=== PATIENT | female | born 1995 | race Caucasian/White ===

== ENCOUNTER 2016-05-01 18:00 | Emergency (ER) | payer OTHER ==
[~2016-05-01] VITALS: Ht 162.6 cm; Wt 53.0 kg
[~2016-05-01 18:00] MED LIST: CALC-176 PO; FER325 PO; PRENAT PO
[2016-05-01 18:45] VITALS: Ht 162.6 cm; Wt 53.0 kg
--- NOTE | 2016-05-01 22:11 | ERD ---
ER Documentation Chief Complaint Date/Time DATE: 05/01/16 TIME: 22:10 Chief Complaint 8 weeks , vag bleeding x 2 days HPI 20-year-old female presents here in emergency department for complaints of vaginal bleeding for 2 days. Patient describes the bleeding as spotting, 4/10 scale, now better or worse with anything. Patient is 2 para 1 0. Patient was told 2015. Patient is approximately 8 weeks . Patient denies hematuria or dysuria. Patient denies any flank pain. Patient denies any abdominal pain. Patient denies any nausea or vomiting. Patient did not take any medications to help with symptoms. ROS All systems reviewed and are negative except as per history of present illness. Medications Home Meds Reported Medications Calcium Cmb 2-Mag Cmb 12-Vit D3 (Calcium 500) 1 Each Tablet, 1 TAB PO DAILY, TAB 02/25/14 Ferrous Sulfate* (Ferrous Sulfate*) 325 Mg Tabec, 325 MG PO DAILY, TAB 02/25/14 Multivit/Min/Fol Ac/Iron/Pren* ( S*) 1 Tab Tab, 1 TAB PO DAILY, TAB 12/18/13 Allergies Allergies: Coded Allergies: No Known Allergy (Unverified , 05/25/14) PMhx/Soc Medical and Surgical Hx: pt denies Medical Hx, pt denies Surgical Hx History of Surgery: No Anesthesia Reaction: No Hx Neurological Disorder: No Hx Respiratory Disorders: No Hx Cardiac Disorders: No Hx Psychiatric Problems: No Hx Miscellaneous Medical Probl: No Hx Alcohol Use: No Hx Substance Use: No Hx Tobacco Use: No Smoking Status: Never smoker FmHx Family History: No coronary disease, No diabetes, No other Physical Exam Vitals Vital Signs Date Time Temp Pulse Resp B/P Pulse Ox O2 Delivery O2 Flow Rate FiO2 05/01/16 18:45 99.4 89 20 126/59 100 Physical Exam GENERAL: The patient is well developed and appropriate for usual state of health, in no apparent distress. CHEST: Clear to auscultation bilaterally. There are no rales, wheezes or rhonchi. HEART: Regular rate and rhythm. No murmurs, clicks, rubs or gallops. No S3 or S4. ABDOMEN: Soft, nontender and nondistended. Good bowel sounds. No rebound or guarding. No gross peritonitis. No gross organomegaly or masses. No Fung sign or McBurney point tenderness. BACK: No midline or flank tenderness. EXTREMITIES: Equal pulses bilaterally. There is no peripheral clubbing, cyanosis or edema. No focal swelling or erythema. Full range of motion. Grossly neurovascularly intact. NEURO: Alert and oriented. Cranial nerves 2-12 intact. Motor strength in all 4 extremities with 5/5 strength. Sensation grossly intact. Normal speech and gait. SKIN: There is no apparent rash or petechia. The skin is warm and dry. HEMATOLOGIC AND LYMPHATIC: There is no evidence of excessive bruising or lymphedema. No gross cervical, axillary, or inguinal lymphadenopathy. VAGINAL: Small amount of blood in the vaginal vault, cervical os is closed. No cervical motion tenderness or adnexal tenderness noted. Result Diagram: 05/01/162226 Results 24 hrs Laboratory Tests Test 05/01/16 22:27 05/01/16 22:55 Basophils # 0.010^3/ul Basophils % 0.6% Beta HCG, Quantitative 2922.3mIU/ml Blood Morphology Comment Eosinophils # 0.110^3/ul Eosinophils % 1.5% Hematocrit 39.1% Hemoglobin 13.3g/dl Lymphocytes # 2.110^3/ul Lymphocytes % 34.3% Mean Corpuscular Hemoglobin 30.5pg Mean Corpuscular Hemoglobin Concent 34.0g/dl Mean Corpuscular Volume 89.6fl Mean Platelet Volume 8.5fl Monocytes # 0.810^3/ul Monocytes % 13.3% Neutrophils # 3.110^3/ul Neutrophils % 50.3% Nucleated Red Blood Cells # 0.010^3/ul Nucleated Red Blood Cells % 0.0/100WBC Platelet Count 73333^3/UL Red Blood Count 4.3610^6/ul Red Cell Distribution Width 15.3% White Blood Count 6.210^3/ul Urine Bacteria MODERATE Urine Bilirubin NEGATIVE Urine Clarity CLEAR Urine Color LT. YELLOW Urine Glucose NEGATIVE% Urine Hemoglobin 2+ Urine Ketones NEGATIVE Urine Leukocyte Esterase NEGATIVE Urine Microscopic RBC 0-2/HPF Urine Microscopic WBC 2-5/HPF Urine Nitrite NEGATIVE Urine Specific [place] 1.020 Urine Squamous Epithelial Cells MANY Urine Total Protein NEGATIVE Urine Urobilinogen 1.0 E.U./dL Urine pH 6.5 PROCEDURE: ULTRASOUND OBSTETRICAL CLINICAL INDICATION: 20-year-old female with vaginal bleeding. TECHNIQUE: Multiple sonographic images of the pelvis were obtained. The images were reviewed on a PACS workstation. COMPARISON: None. FINDINGS: There is a single intrauterine gestation. There is a yolk sac present. The mean sac diameter is 0.34 cm. This yields an estimated gestational age of 4 weeks and 6 days. The estimated date of delivery is January 02, 2017. There is no evidence for a pole. There is no evidence for free fluid. The right ovary has a normal echotexture and measures 3.5 x 2.1 x 3.4 cm. The left ovary has a normal echotexture and measures 2.5 x 2.2 x 2.5 cm. There is normal flow to the ovaries bilaterally. No adnexal masses are noted. IMPRESSION: Single early intrauterine gestation of approximately 4 weeks 6 days without evidence for a pole. Clinical correlation and follow-up ultrasound is suggested. .Dell Colindres MD, MD Date Time Electronically viewed and signed by .Dell Colindres MD, MD on 05/01/2016 23:50 .M/ CC: [facility] Procedures/MDM Medical Decision Making: Patients vaginal bleeding is most likely consistent of possible threatened . Patient does not show any evidence of hypovolemic shock. Patients hemoglobin and hematocrit is stable. There is low suspicion for ectopic . JAKE results show in all 4 week BetaHCG Quantitative is appropriate for The patient is Rh+, does not need RhoGAM this time. There is no signs of symptoms of dehydration. There is low suspicion for sepsis. Patient appears well and is hemodynamically stable. Disposition: Home. Condition: Stable Instructions: Patient is advised to do bed rest, avoid heavy lifting, and avoid having sex until cleared by OB doctor. Patient is advised to follow up with OB doctor or here at the ER in 48 hours for reevaluation of symptoms, repeat beta HCG quantitative and ultrasound. Patient is advised that is symptoms are worst, severe bleeding, dizziness, severe abdominal pain, fever, worst signs and symptoms to return to the emergency department immediately. Departure Diagnosis: Primary Impression: Threatened miscarriage Additional Impression: Intrauterine Condition: Stable Patient Instructions: Possible Miscarriage (Threatened ) Additional Instructions: Patient is advised to do bed rest, avoid heavy lifting, and avoid having sex until cleared by OB doctor. Patient is advised to follow up with OB doctor or here at the ER in 48 hours for reevaluation of symptoms, repeat beta HCG quantitative and ultrasound. Patient is advised that is symptoms are worst, severe bleeding, dizziness, severe abdominal pain, fever, worst signs and symptoms to return to the emergency department immediately. [facility] NP May 01, 2016 22:11
[2016-05-01 22:51] LABS: BASOPHILS % 0.6 % (0.0-2.0); EOSINOPHILS # 0.1 10^3/ul (0.0-0.5); EOSINOPHILS % 1.5 % (0.0-7.0); HEMATOCRIT 39.1 % (37.0-47.0); HEMOGLOBIN 13.3 g/dl (12.0-16.0); LYMPHOCYTES # 2.1 10^3/ul (0.8-2.9); LYMPHOCYTES % 34.3 % (15.0-51.0); MEAN CORPUSCULAR HEMOGLOBIN 30.5 pg (29.0-33.0); MEAN CORPUSCULAR VOLUME 89.6 fl (82.0-101.0); MEAN PLATELET VOLUME 8.5 fl (7.4-10.4); MONOCYTE # 0.8 10^3/ul (0.3-0.9); MONOCYTES % 13.3 % (0.0-11.0); NEUTROPHIL # 3.1 10^3/ul (1.6-7.5); NEUTROPHILS % 50.3 % (39.0-77.0); PLATELET COUNT 190 10^3/UL (140-440); RED BLOOD COUNT 4.36 10^6/ul (4.20-5.40); RED CELL DISTRIBUTION WIDTH 15.3 % (11.5-14.5); UNCORRECTED WBC 6.2 10^3/ul (4.8-10.8); WHITE BLOOD COUNT 6.2 10^3/ul (4.8-10.8)
[2016-05-01 22:52] LABS: CONDITION 1; LH ANALYZER COMMENTS 1
[2016-05-01 23:22] LABS: ADD UMIC YES; URINE BILIRUBIN (Dip) NEGATIVE (NEGATIVE); URINE BLOOD (Dip) 2+ (NEGATIVE); URINE COLOR LT. YELLOW (YELLOW); URINE GLUCOSE (Dip) NEGATIVE (NEGATIVE); URINE KETONES (Dip) NEGATIVE (NEGATIVE); URINE LEUKOCYTE ESTERASE (Dip) NEGATIVE (NEGATIVE); URINE NITRITE (Dip) NEGATIVE (NEGATIVE); URINE TOTAL PROTEIN (Dip) NEGATIVE (NEGATIVE); URINE UROBILINOGEN (Dip) 1.0 E.U./dL (0.1-1.0)
--- NOTE | 2016-05-01 23:51 | RADRPT ---
PROCEDURE: ULTRASOUND OBSTETRICAL CLINICAL INDICATION: 20-year-old female with vaginal bleeding. TECHNIQUE: Multiple sonographic images of the pelvis were obtained. The images were reviewed on a PACS workstation. COMPARISON: None. FINDINGS: There is a single intrauterine gestation. There is a yolk sac present. The mean sac diameter is 0. 34 cm. This yields an estimated gestational age of 4 weeks and 6 days. The estimated date of deliver y is January 02, 2017. There is no evidence for a pole. There is no evidence for free fluid. The right ovary has a normal echotexture and measures 3.5 x 2.1 x 3.4 cm. The left ovary has a nor mal echotexture and measures 2.5 x 2.2 x 2.5 cm. There is normal flow to the ovaries bilaterally. N o adnexal masses are noted. IMPRESSION: Single early intrauterine gestation of approximately 4 weeks 6 days without evidence for a mikki e. Clinical correlation and follow-up ultrasound is suggested. .Dell Colindres MD, MD Date Time Electronically viewed and signed by .Dell Colindres MD, on 05/01/2016 23:50 .M/
[2016-05-02 00:06] LABS: BACTERIA,URINE MODERATE; SQUAMOUS EPITHELIAL CELL,UR MANY; URINE RBCS 0-2 /HPF (0)
[2016-05-02 00:56] VITALS: BP 118/65; PULSE 91; RESP 16
== END 2016-05-02 00:58 | disposition home or self-care (01) ==
LOC: FTE 18:00
DX: O20.0 Threatened abortion (principal); Z3A.01 Less than 8 weeks gestation of pregnancy
CPT/HCPCS: 76801; 76817; 81001; 84702; 85025; 86900; 86901; Z7502; 81003

== ENCOUNTER 2016-11-09 22:55 | Outpatient (CLI) | payer MEDICAID, OTHER ==
[~2016-11-09] VITALS: Ht 162.6 cm; Wt 66.7 kg
[2016-11-09 23:17] VITALS: BP 105/55; PULSE 80; RESP 18; Ht 162.6 cm; Wt 66.7 kg
--- NOTE | 2016-11-10 00:59 | PN ---
Triage Information Date/Time November 10, 2016 Reason for visit: Abd/pelvic pain Weeks of Gestation 31w 1d /Para 2/1 Diabetes: none Hypertention: none Additional information Pt reports that she feels fine lying down but when she gets up to walk her pelvis hurts a lot. No bleeding or leaking. +FM. PMHx: none. PSHx: none. NKDA. Objective Vital Signs Date Time Temp Pulse Resp B/P Pulse Ox O2 Delivery O2 Flow Rate FiO2 11/09/16 23:17 97.6 80 18 105/55 Room Air Heart Rate: 120's Heart Rate Comments Accels to 140 bpm. No decels. Contractions: >10 Minutes Apart Disposition: Discharge Assessment/Plan A: IUP at 31w 1d. False labor. Ligament pain. P: U/A. P.O hydration. BPP, Cx length. Ma Described to pt why the ligaments hurt during . July d/c pt home if all OK. CHRISTIAN GUAMAN MD Nov 10, 2016 00:59
--- NOTE | 2016-11-10 01:45 | RADRPT ---
PROCEDURE: US OB biophysical profile. CLINICAL INDICATION: decreased movements TECHNIQUE: Multiple sonographic images of the pelvis were obtained. The images were reviewed on a PACS workstation. COMPARISON: No pertinent prior examinations were submitted for comparison. FINDINGS: There is a single viable intrauterine gestation. Cardiac activity is present with 128 beats per min [place]. There is a vertex presentation. The placenta is posterior, grade 2 in appearance. There is a normal amount of amniotic fluid with an [place] = 16.1 cm. The cervix is closed, measuring 3.2 cm in length. Biophysical profile: movement 2/2 tone 2/2. breathing 2/2 [place] 2/2 Total 10/29 IMPRESSION: Normal biophysical profile. RPTAT: HIKT . .Natan Bess MD, Date Time Electronically viewed and signed by .Natan Bess MD, on 11/10/2016 01:44 .T/
[2016-11-10 02:40] LABS: ADD UMIC YES; UR ASCORBIC ACID 20 mg/dL (NEGATIVE); UR BILIRUBIN (Dip) NEGATIVE (NEGATIVE); UR BLOOD (Dip) NEGATIVE (NEGATIVE); UR CLARITY SLIGHTLY CLOUDY (CLEAR); UR COLOR YELLOW (YELLOW); UR GLUCOSE (Dip) NEGATIVE (NEGATIVE); UR KETONES (Dip) NEGATIVE (NEGATIVE); UR LEUKOCYTE ESTERASE (Dip) 1+ Leu/ul (NEGATIVE); UR NITRITE (Dip) NEGATIVE (NEGATIVE); UR RBC 1 /HPF (0-5); UR SPECIFIC GRAVITY (Dip) 1.024 (1.003-1.030); UR SQUAMOUS EPITHELIAL CELL FEW /HPF (FEW); UR TOTAL PROTEIN (Dip) NEGATIVE (NEGATIVE); UR UROBILINOGEN (Dip) NEGATIVE (NEGATIVE)
== END 2016-11-10 02:45 | disposition home or self-care (01) ==
LOC: OBT 22:55 → L-D 22:57 → OBT 11-10 02:45
PROVIDERS: ATTEND Obstetrics & Gynecology
DX: O26.893 Other specified pregnancy related conditions, third trimester (principal); Z3A.31 31 weeks gestation of pregnancy; R10.2 Pelvic and perineal pain; O47.03 False labor before 37 completed weeks of gestation, third trimester
CPT/HCPCS: 76817; 76818; 81001

== ENCOUNTER 2016-12-16 21:22 | Outpatient (CLI) | payer OTHER ==
[~2016-12-16] VITALS: Ht 162.6 cm; Wt 69.7 kg
[2016-12-16 22:38] VITALS: BP 115/68; PULSE 80; RESP 18; Ht 162.6 cm; Wt 69.7 kg
--- NOTE | 2016-12-17 00:07 | RADRPT ---
PROCEDURE: ULTRASOUND BIOPHYSICAL PROFILE CLINICAL INDICATION: 21-year-old female for viability. TECHNIQUE: Multiple sonographic images were obtained in order to perform a biophysical profile The images were reviewed on a PACS workstation. COMPARISON: Ultrasound biophysical profile November 10, 2016. FINDINGS: There is a single viable intrauterine gestation. There is a vertex presentation. Cardiac activity i s present at 125 beats per minute. The placenta is fundal. The results of the biophysical profile a re as follows: breathing movement = 2/2 Gross body movement = 2/2 tone = 2/2 Qualitative amniotic fluid volume = 2/2 Amniotic fluid index equals 16.9 cm. This yields a biophysical profile score of 8/8. IMPRESSION: Biophysical profile score is 8/8. .Dell Colindres MD, MD Date Time Electronically viewed and signed by .Dell Colindres MD, on 12/17/2016 00:07 .M/
--- NOTE | 2016-12-17 00:10 | RADRPT ---
PROCEDURE: ULTRASOUND OBSTETRICAL CLINICAL INDICATION: 21-year-old female for size and date determination. TECHNIQUE: Multiple sonographic images of the pelvis were obtained. The images were reviewed on a PACS workstation. COMPARISON: Ultrasound biophysical profile obtained concurrently. FINDINGS: The cervix is not well visualized. There is a single viable intrauterine gestation. Cardiac activit y is present with 124 beats per minute. There is a vertex presentation. Measurements were made in or jolie to determine age. The results are as follows: BPD = 9.45 cm, HC = 33.30 cm, AC = 34.08 cm, FL = 7.40 cm. This yields and estimated gestational ag e of approximately 38 weeks 1 day. The estimated date of delivery is December 29, 2016. The EFW = 33 74 +/- 506 g (7 lb 7 oz). The GP is 45%. The placenta is fundal. There is no evidence for an abruption or placenta previa. IMPRESSION: 1. Single viable intrauterine gestation of approximately 38 weeks 1 day with vertex presentation. 2. The estimated weight is 3374 +/- 506 g (7 lb 7 oz). The GP is 45%. .Dell Colindres MD, Date Time Electronically viewed and signed by .Dell Colindres MD, on 12/17/2016 00:10 .M/
--- NOTE | 2016-12-17 01:57 | TRIAGE ---
OB Triage Datetime Report Generated by CPN: 12/17/2016 01:56 Datetime: 12/17/2016 01:49 Stage of : OB Triage Datetime: 12/17/2016 01:46 Labor Evaluation Frequency: 2-4 Monitor Mode: External Duration (sec)2399: 40-80 Pattern: Normal: <= 5 Contractions in 10 Minutes Heart Rate FHR Baseline Rate: 120 Monitor Mode: External US FHR Baseline Changes: No Baseline Change Variability: Moderate 6-25 bpm Datetime: 12/17/2016 01:24 Vaginal Exam Dilatation (cms): 2.0 Effacement (%): 60 Station: -1 Exam By: justin rn Vaginal Bleeding: None Cervix, Consistency: Moderate Cervix, Position: Posterior Presentation 'A': Cephalic Datetime: 12/17/2016 00:30 Stage of : OB Triage Datetime: 12/16/2016 22:30 Labor Evaluation Frequency: occ Monitor Mode: External Pattern: Normal: <= 5 Contractions in 10 Minutes Heart Rate FHR Baseline Rate: 115 FHR Baseline Changes: No Baseline Change Variability: Moderate 6-25 bpm Accelerations: 15X15 Datetime: 12/16/2016 22:17 Pain Presence: None/Denies Pain Assessment Comments: patient denies UC's since she has come to the hospital, states that she only feels pressure when she walks Datetime: 12/16/2016 22:02 Time of Arrival: 12/16/2016 21:20 EGA: 38.6 Arrived By: Wheelchair Arrived From: Home Chief Complaint: CONTRACTIONS Movement: Present Contractions: Regular Time Contractions Began: 12/16/2016 19:00 Contractions: Q5MIN PER PT REPORT Rupture of Membranes: Denies Vaginal Bleeding: None Vaginal Discharge: Present Recent Sexual Intercouse: Denies Abdominal Trauma: Not Applicable Patient Complaints: Contractions Time Provider Notified: 12/16/2016 22:14 Provider Notified: [place] Initial Plan: CEFM, SVE, BPP, EFW, AMBULATE Datetime: 12/16/2016 21:51 Vaginal Exam Dilatation (cms): 2.5 Effacement (%): 50 Station: -1 Exam By: bechristyVendavoista Vaginal Bleeding: None Cervix, Consistency: Moderate Cervix, Position: Posterior Presentation 'A': Cephalic Datetime: 12/16/2016 21:48 Stage of : OB Triage Pain Assessment Pain Scale: 9 Pain Presence: Intermittent Pain Type: Cramping; Contraction Pain Location: Abdomen Datetime: 12/16/2016 21:35 Assessment Type: Triage Maternal Assessment Level of Consciousness: Fully Conscious DTR's/Clonus: DTRs 2+; No Clonus Headache: Denies Blurred Vision: No Respiratory Effort: Unlabored; Regular Rhythm; Equal Expansion Breath Sounds, Left: Clear and Equal Breath Sounds, Right: Clear and Equal Nausea/Vomiting: Denies RUQ Epigastric Pain: Denies Lower Extremities Edema: None Degree: None Upper Extremities Edema: None Degree: None Facial Edema: None Fall Risk Assessment History of Falling: (0) No Secondary Diagnosis: (0) No Ambulatory Aid: (0) Bedrest/Nurse Assist IV Therapy: (0) No Gait: (0) Normal/Bedrest/Immobile Mental Status: (0) Oriented to Own Ability Fall Score: 0 Fall Risk Score Definition: No Risk: No action required Datetime: 11/10/2016 02:10 Labor Evaluation Frequency: NONE Monitor Mode: External Pattern: Normal: <= 5 Contractions in 10 Minutes Resting Tone [place]: Relaxed Heart Rate FHR Baseline Rate: 115 Monitor Mode: External US FHR Baseline Changes: No Baseline Change Variability: Moderate 6-25 bpm Accelerations: 15X15 Decelerations: None Category: Category I Datetime: 11/10/2016 01:00 Labor Evaluation Frequency: X2 Monitor Mode: External Duration (sec)2399: 70-80 Quality: Mild Pattern: Normal: <= 5 Contractions in 10 Minutes Resting Tone [place]: Relaxed Heart Rate FHR Baseline Rate: 120 Monitor Mode: External US FHR Baseline Changes: No Baseline Change Variability: Moderate 6-25 bpm Accelerations: 15X15 Decelerations: Variable Category: Category II Datetime: 11/10/2016 00:38 Comments: LOSS OF CONTACT Datetime: 11/10/2016 00:00 Labor Evaluation Frequency: X2 Monitor Mode: External Duration (sec)2399: 50-70 Quality: Mild Pattern: Normal: <= 5 Contractions in 10 Minutes Resting Tone [place]: Relaxed Heart Rate FHR Baseline Rate: 120 Monitor Mode: External US FHR Baseline Changes: No Baseline Change Variability: Moderate 6-25 bpm Accelerations: 15X15 Decelerations: None Category: Category I Datetime: 11/09/2016 23:15 Time of Arrival: 11/09/2016 22:50 EGA: 33.4 Arrived By: Wheelchair Arrived From: Home Chief Complaint: lower abdominal pressure Movement: Present Contractions: Denies/Absent Rupture of Membranes: Ruptured Vaginal Bleeding: None Vaginal Discharge: Denies Recent Sexual Intercouse: Denies Abdominal Trauma: Not Applicable Patient Complaints: None Time Provider Notified: 11/10/2016 00:50 Provider Notified: (Annotations: Data stored by [facility] on behalf of user) Initial Plan: efm, PO HYDRATION, U_S FOR CERVICAL LENGTH AND BPP, UA Datetime: 11/09/2016 23:13 Assessment Type: Triage Maternal Assessment Level of Consciousness: Fully Conscious DTR's/Clonus: DTRs 2+; No Clonus Headache: Denies Blurred Vision: No Respiratory Effort: Unlabored; Regular Rhythm; Equal Expansion Breath Sounds, Left: Clear and Equal Breath Sounds, Right: Clear and Equal Nausea/Vomiting: Denies RUQ Epigastric Pain: Denies Facial Edema: None Fall Risk Assessment History of Falling: (0) No Secondary Diagnosis: (0) No Ambulatory Aid: (0) Bedrest/Nurse Assist IV Therapy: (0) No Gait: (0) Normal/Bedrest/Immobile Mental Status: (0) Oriented to Own Ability Fall Score: 0 Fall Risk Score Definition: No Risk: No action required Comment: pt c_o lower abdominal pressure. denies leaking or bleeding. placed on efm Datetime: 11/09/2016 23:10 Membrane Status: Intact Datetime: 11/09/2016 22:57 Labor Evaluation Frequency: none Pattern: Normal: <= 5 Contractions in 10 Minutes Resting Tone [place]: Relaxed Heart Rate FHR Baseline Rate: 115 Monitor Mode: External US FHR Baseline Changes: No Baseline Change Variability: Moderate 6-25 bpm Accelerations: 15X15 Decelerations: None Category: Category I
== END 2016-12-17 02:00 | disposition home or self-care (01) ==
LOC: OBT 21:22 → L-D 21:23 → OBT 12-17 02:00
PROVIDERS: ATTEND Obstetrics & Gynecology
DX: O26.893 Other specified pregnancy related conditions, third trimester (principal); R10.9 Unspecified abdominal pain; Z3A.33 33 weeks gestation of pregnancy
CPT/HCPCS: 76815; 76818; Z7500; G0463

== ENCOUNTER 2016-12-21 16:07 | Inpatient (IN) | payer OTHER ==
[~2016-12-21] VITALS: Ht 162.6 cm; Wt 70.0 kg
[2016-12-21] MEDS ORDERED: LACTATED RINGER'S 1,000 ML IV SCH (16:46)
[2016-12-21] MEDS ORDERED: AMPICILLIN 2 GM/NS (PMX) 100 ML ONE (16:52)
[2016-12-21 16:55] VITALS: Ht 162.6 cm; Wt 70.0 kg
[2016-12-21] MEDS ORDERED: OXYTOCIN 30 UNITS/LR 500 ML IV SCH (17:00)
[2016-12-21] MEDS ORDERED: OXYTOCIN 30 UNITS/LR 500 ML IV PRN (17:00)
[2016-12-21] MEDS ORDERED: BUTORPHANOL 2 MG INJ IV PRN (17:00)
[2016-12-21] MEDS ORDERED: OXYCODONE/ACETAMINOPHEN (5/325) TAB PO PRN (17:00)
[2016-12-21] MEDS ORDERED: LIDOCAINE 1% (MPF) 30 ML INJ INJ PRN (17:00)
[2016-12-21] MEDS ORDERED: MISOPROSTOL 200 MCG TAB PR PRN (17:00)
[2016-12-21] MEDS ORDERED: METHYLERGONOVINE 0.2 MG INJ IM PRN (17:00)
[2016-12-21] MEDS ORDERED: CARBOPROST 250 MCG INJ IM PRN (17:00)
[2016-12-21] MEDS ORDERED: AMPICILLIN 2 GM/NS (PMX) 100 ML IV ONE (17:00)
[2016-12-21 17:09] LABS: BASOPHIL # 0.1 10^3/ul (0.0-0.1); BASOPHILS % 0.6 % (0.0-2.0); EOSINOPHILS # 0.1 10^3/ul (0.0-0.5); EOSINOPHILS % 0.8 % (0.0-7.0); HEMATOCRIT 41.7 % (37.0-47.0); HEMOGLOBIN 14.5 g/dl (12.0-16.0); LYMPHOCYTES # 1.7 10^3/ul (0.8-2.9); LYMPHOCYTES % 16.4 % (15.0-51.0); MEAN CORPUSCULAR HGB CONC 34.8 g/dl (32.0-37.0); MEAN CORPUSCULAR VOLUME 97.7 fl (82.0-101.0); MEAN PLATELET VOLUME 10.6 fl (7.4-10.4); MONOCYTES % 9.8 % (0.0-11.0); NEUTROPHIL # 7.1 10^3/ul (1.6-7.5); NEUTROPHILS % 68.9 % (39.0-77.0); PLATELET COUNT 160 10^3/UL (140-415); RED BLOOD COUNT 4.27 10^6/ul (4.20-5.40); RED CELL DISTRIBUTION WIDTH 13.5 % (11.5-14.5); WHITE BLOOD COUNT 10.3 10^3/ul (4.8-10.8)
[2016-12-21 17:23] LABS: INR 0.83; PROTIME 11.4 Sec (12.2-14.2); PT RATIO 0.9
[2016-12-21 17:24] LABS: PARTIAL THROMBOPLASTIN TIME 25.9 Sec (25.0-35.0)
--- NOTE | 2016-12-21 18:00 | HP ---
Date/Time of Note Date/Time of Note DATE: 12/21/16 TIME: 17:55 OB - History Hx of Present Free Text/Dictation 20 years old female admitted to [facility] in active labor pelvic examination on admission cervix 7 cm dilated 100% effaced vertex at -1 station bulging bag Chief Complaint: Labor contraction Estimated Due Date: Dec 24, 2016 : 2 Para: 1 Care: Good Care Ultrasounds: Normal mid trimester US Obstetrical Complications: None Medical Complications: None Past Family/Social History * Past Medical, Surgical, Family and Obstetric Histories reviewed from chart. Rubella: immune RPR/VDRL: Negative GBS Status: Negative OB Admission Exam Physical Exam HEENT: WNL Heart: Rhythm Normal Lungs: Clear, Equal Extremities: Normal Reflexes: Normal Cervical Dilatation: 7cm Effacement: 100% Station: -1 Heart Rate: 130's Accelerations: Accelerations Present Decelerations: No Decelerations Varibility: Moderate Contractions on Admission: < 5 Minutes Apart Intensity: Firm Last 72 hours Lab Results CBC & BMP 12/21/16 16:45 OB Assessment/Plan Reason for admission: active labor Plan: Other (20 years old female admitted to the hospital in active labor pelvic exam on admission cervix 7 cm dilated 100% effaced vertex at -2 station patient transferred from triage to the labor and delivery room anticipating fast normal vaginal delivery) GLEN ARMSTRONG MD Dec 21, 2016 18:00
--- NOTE | 2016-12-21 18:04 | LDN ---
Date/Time of Note Date/Time of Note DATE: 12/21/16 TIME: 18:00 Delivery Summary Normal spontaneous vaginal delivery of a baby boy from OA position shoulders delivered without any difficulty rest of the baby's body followed cord clamped after stopped pulsation baby handed to the team for immediate attention patient received 20 units of Pitocin through IV infusion placenta is spontaneous expulsion inspected complete blood loss 300 cc Weeks of Gestation 39 weeks 4 days Placenta Delivered: Spontaneously Problems: Delivery Information Sex Sex: male Apgars 1 Minute: 8 5 Minute: 9 Suctioning Nose & mouth suctioned at pat: Yes Delee suction performed: No Umbilical Cord Umbilical cord with: 3 Vessels Cord presentations: nuchal cord Nuchal cord present X: 1 Cord Blood was obtained: Yes GLEN ARMSTRONG MD Dec 21, 2016 18:04
[2016-12-21] MEDS: OXYTOCIN 30 UNITS/LR 500 ML IV SCH (18:20)
[2016-12-21] MEDS ORDERED: LACTATED RINGER'S 1,000 ML IV PRN (20:40)
--- NOTE | 2016-12-21 20:49 | QN ---
Documentation Comment Laborist Note Asked to see this pt who delivered vaginally with Dr Doss and was having continued bleeding. She has been given Methergine, Cytotec and Pitocin. Upon exam there was a moderate amount of blood clots inside the endometrial cavity. I could not reach the fundus due to the pt discomfort as she did not have an epidural. I examined the entroitus and there were bilateral labial lacerations which had not been repaired, one of which had brisk bleeding, so the were both cleaned, injected with local anesthetic and sutured with 2-0 chromic. Again examined the os and the amount of blood present was distinctly less. If the pt continues to bleed I will take her to the OR, sedate her and do a more aggressive exam of the uterus. CHRISTIAN GUAMAN MD Dec 21, 2016 20:48
[2016-12-21] MEDS ORDERED: AMPICILLIN 1 GM/NS (PMX) 50 ML IV SCH (21:00)
[2016-12-21] MEDS ORDERED: MIDAZOLAM 1 MG/ML 2 ML INJ ONE (22:26)
[2016-12-21] MEDS ORDERED: CEFAZOLIN 1 GM INJ ONE (22:52)
--- NOTE | 2016-12-22 00:04 | QN ---
Documentation Comment Laborist Note As p0t continued tobleed had her brought to the OR and given a spinal to better address the issue. After prepping and draping the pt used my hand to sweep the entire uterus and a small to moderate amount of blood clots were removed and there were no retained products. The fundus contracted nicely however the lower uterine segment continued to be poorly contracted and therefore with continued bleeding albeit not very heavy but rather consistent. Gave the pt a dose of methergine. There was a possible cervical laceration on the left side of the uterus so I placed a stitch with 2-0 chromic at that apex and another stitch at 2 to 4 o'clock on each side. This greatly decreased the bleeding. I placed a ring forcep on the top and bottom of the cervix and let them sit there for 5 minutes and then removed them and there was no bleeding after that. Cleaned the pt up and returned her to her room.Pt received one dose of IV Ancef in the OR. Her BP, heart rate, temperature and O2 sat were normal upon return to her room. CHRISTIAN GUAMAN MD Dec 22, 2016 00:04
[2016-12-22] MEDS: OXYTOCIN 30 UNITS/LR 500 ML IV SCH ×3 (00:12→08:07)
[2016-12-22] MEDS ORDERED: METHYLERGONOVINE 0.2 MG INJ IM PRN (01:00)
[2016-12-22] MEDS ORDERED: BENZOCAINE 20% 56 ML SPRAY TOP PRN (01:00)
[2016-12-22] MEDS ORDERED: WITCH HAZEL/GLYCERIN PAD PR PRN (01:00)
[2016-12-22] MEDS ORDERED: OXYTOCIN 30 UNITS/LR 500 ML IV PRN (01:00)
[2016-12-22] MEDS ORDERED: HYDROCODONE/APAP (5/325) TAB PO PRN ×2 (01:00)
[2016-12-22] MEDS ORDERED: MISOPROSTOL 200 MCG TAB PR PRN (01:00)
[2016-12-22] MEDS ORDERED: ACETAMINOPHEN 325 MG TAB PO PRN (01:00)
[2016-12-22] MEDS ORDERED: LANOLIN 7 GM TUBE TOP PRN (01:00)
[2016-12-22] MEDS ORDERED: ONDANSETRON 4 MG INJ IV PRN (01:00)
[2016-12-22] MEDS ORDERED: OXYCODONE/ASPIRIN (4.88/325) TAB PO PRN ×2 (01:00)
[2016-12-22] MEDS ORDERED: DIBUCAINE 1% 30 GM OINT PR PRN (01:00)
[2016-12-22] MEDS ORDERED: CARBOPROST 250 MCG INJ IM PRN (01:00)
[2016-12-22 01:15] VITALS: BP 117/64; PULSE 93; RESP 18
[2016-12-22 01:45] VITALS: BP 115/62; PULSE 97; RESP 18
[2016-12-22 03:53] VITALS: BP 110/57; PULSE 101; RESP 18
[2016-12-22] MEDS: IBUPROFEN 600 MG TAB PO SCH ×3 (05:52→17:25)
[2016-12-22 07:30] VITALS: BP 97/50; PULSE 80; RESP 18
[2016-12-22] MEDS: SENNA/DOCUSATE NA (8.6MG/50MG) TAB PO SCH ×2 (08:06→21:00)
[2016-12-22 09:02] LABS: BASOPHILS % 0.2 % (0.0-2.0); EOSINOPHILS % 0.3 % (0.0-7.0); HEMATOCRIT 31.7 % (37.0-47.0); HEMOGLOBIN 10.7 g/dl (12.0-16.0); LYMPHOCYTES # 1.4 10^3/ul (0.8-2.9); LYMPHOCYTES % 10.4 % (15.0-51.0); MEAN CORPUSCULAR HEMOGLOBIN 32.8 pg (29.0-33.0); MEAN CORPUSCULAR HGB CONC 33.8 g/dl (32.0-37.0); MEAN CORPUSCULAR VOLUME 97.2 fl (82.0-101.0); MEAN PLATELET VOLUME 10.4 fl (7.4-10.4); MONOCYTE # 1.3 10^3/ul (0.3-0.9); MONOCYTES % 9.9 % (0.0-11.0); NEUTROPHIL # 10.3 10^3/ul (1.6-7.5); NEUTROPHILS % 77.7 % (39.0-77.0); PLATELET COUNT 106 10^3/UL (140-415); RED BLOOD COUNT 3.26 10^6/ul (4.20-5.40); RED CELL DISTRIBUTION WIDTH 13.3 % (11.5-14.5); WHITE BLOOD COUNT 13.3 10^3/ul (4.8-10.8)
--- NOTE | 2016-12-22 13:27 | QN ---
Documentation Comment Post vaginal delivery day 1 Vital signs are post normal vaginal delivery day 1 vital signs temperature 98.1 pulse 80 respiration 18 blood pressure 97/55, hemoglobin 10.4 hematocrit 30 .1patient seems comfortable denies any pain, lightheadedness, her lochia is moderate, uterus firm extremities normal GLEN ARMSTRONG MD Dec 22, 2016 13:27
[2016-12-22 16:00] VITALS: BP 94/53; PULSE 87; RESP 18
[2016-12-22 20:00] VITALS: BP 99/55; PULSE 92; RESP 18
[2016-12-23 04:00] VITALS: BP 105/60; PULSE 83; RESP 18
[2016-12-23] MEDS: IBUPROFEN 600 MG TAB PO SCH ×3 (05:55→11:38)
[2016-12-23 08:15] VITALS: BP 97/50; PULSE 71; RESP 18
[2016-12-23] MEDS: SENNA/DOCUSATE NA (8.6MG/50MG) TAB PO SCH (08:58)
[2016-12-23] MEDS ORDERED: MEASLES,MUMPS,RUBELLA VACCINE INJ SC* ONE (09:00)
[2016-12-23] MEDS ORDERED: INFLUENZA VIRUS VACCINE 0.5 ML (DISPENSING) IM* ONE (09:00)
--- NOTE | 2016-12-23 10:00 | PD.PPDC ---
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
--- NOTE | 2016-12-23 10:04 | DS ---
Date/Time of Note Date/Time of Note DATE: 12/23/16 TIME: 10:01 Discharge Summary Admission/Discharge Info Admit Date/Time Dec 21, 2016 at 16:33 Discharge Date/Time December 23, 2016 at 10 AM Discharge Diagnosis Post normal vaginal delivery day 2 Procedures Normal vaginal delivery Hx of Present Illness Term In labor Hospital Course Satisfactory uneventful Home Meds Reported Medications Calcium Cmb 2-Mag Cmb 12-Vit D3 (Calcium 500) 1 Each Tablet, 1 TAB PO DAILY, TAB 02/25/14 Ferrous Sulfate* (Ferrous Sulfate*) 325 Mg Tabec, 325 MG PO DAILY, TAB 02/25/14 Multivit/Min/Fol Ac/Iron/Pren* ( S*) 1 Tab Tab, 1 TAB PO DAILY, TAB 12/18/13 Follow-up Plan instructions given recommended to be seen at the clinic in 2 weeks Primary Care Provider Barby Walker Time spent on discharge: < 30 minutes GLEN ARMSTRONG MD Dec 23, 2016 10:04
== END 2016-12-23 16:22 | disposition home or self-care (01) | DRG 774 ==
LOC: OBT 16:07 → L-D 16:08 → OBT 16:34 → L-D 22:20 → PP1 12-22 01:09
PROVIDERS: ADMIT Obstetrics & Gynecology; ATTEND Obstetrics & Gynecology
PROC: 0UQC7ZZ Repair Cervix, Via Natural or Artificial Opening (ICD-10-PCS; 2016-12-21)
PROC: 0HQ9XZZ Repair Perineum Skin, External Approach (ICD-10-PCS; 2016-12-21)
PROC: 10E0XZZ Delivery of Products of Conception, External Approach (ICD-10-PCS; principal; 2016-12-21 17:00)
DX: O70.0 First degree perineal laceration during delivery (principal); O72.1 Other immediate postpartum hemorrhage; Z37.0 Single live birth; O71.3 Obstetric laceration of cervix; Z3A.39 39 weeks gestation of pregnancy
CPT/HCPCS: 85025; 85610; 85730; 86592; 86900; 86901; 88307; 90686; 99464; A4310; J0290; J0690; J2210; J2250; J2590; J7120

== ENCOUNTER 2017-04-10 18:38 | Emergency (ER) | END 2017-04-11 02:05 | disposition home or self-care (01) ==